=== PATIENT | female | born 1970 | race American Indian/Alaskan Native ===

== ENCOUNTER 2016-12-04 16:07 | Emergency (ER) | payer MEDICAID, OTHER ==
[2016-12-04 16:29] VITALS: BP 138/69
--- NOTE | 2016-12-04 16:30 | EDM.PDOC ---
ED HPI GENERAL MEDICAL PROBLEM - General Chief Complaint: Allergic Reaction Stated Complaint: MSG ALLERGY Time Seen by Provider: 12/04/16 16:30 Source of Information: Reports: Patient, RN, RN notes reviewed History Limitations: Reports: No limitations - History of Present Illness INITIAL COMMENTS - FREE TEXT/NARRATIVE: Ate a cheeseburger at the [employer] store and 20 minutes later developed itching and a "drunken" feeling which she immediately recognized as an MSG reaction. Denies cough, wheezing or rash. Onset: today Quality: Reports: Other (itching) Severity: moderate Improves with: Reports: None Worsens with: Reports: None Associated Symptoms: Reports: no other symptoms - Related Data Allergies Allergy/AdvReac Type Severity Reaction Status Date / Time No Known Allergies Allergy Verified 11/11/13 10:38 Home Meds: Home Meds Aspirin [Halfprin] 81 mg PO DAILY 11/11/13 [History] Ibuprofen [Motrin] 200 mg PO Q6H PRN 11/11/13 [History] Metoprolol Succinate 50 mg PO BID 11/11/13 [History] Sertraline [Zoloft] 100 mg PO DAILY 11/11/13 [History] clonazePAM [Klonopin] 0.5 mg PO TID 11/11/13 [History] Past Medical History Cardiovascular History: Reports: Hypertension Gastrointestinal History: Reports: Pancreatitis Musculoskeletal History: Reports: Arthritis Other Musculoskeletal History: recurrent right knee pain Neurological History: Reports: Concussion, Migraines Psychiatric History: Reports: Anxiety, PTSD Hematologic History: Reports: Anemia - Infectious Disease History Infectious Disease History: Reports: Chicken pox - Past Surgical History GI Surgical History: Reports: Cholecystectomy Social & Family History - Family History Family Medical History: Noncontributory - Tobacco Use Smoking Status *Q: Former Smoker Second Hand Smoke Exposure: No - Alcohol Use Days Per Week of Alcohol Use: 0 - Recreational Drug Use Recreational Drug Use: No - Living Situation & Occupation Living situation: Reports: with family ED ROS ALLERGIC REACTION - Review of Systems Review Of Systems: ROS reveals no pertinent complaints other than HPI. ED EXAM GENERAL NO PERIP PULSE - Physical Exam Exam: See Below Exam Limited By: No limitations General Appearance: obese Eye Exam: bilateral eye: normal inspection Ears: normal external exam, normal canal, hearing grossly normal, normal TMs Nose: normal inspection, normal mucosa, no blood Throat/Mouth: Normal inspection, Normal lips, Normal teeth, Normal gums, Normal oropharynx, Normal voice, No airway compromise Head: atraumatic, normocephalic Neck: normal inspection, supple, non-tender, full range of motion Respiratory/Chest: no respiratory distress, lungs clear, normal breath sounds, no accessory muscle use, chest non-tender Cardiovascular: normal peripheral pulses, regular rate, rhythm, no edema, no gallop, no JVD, no murmur, no rub GI/Abdominal: Other (obese benign abdomen) Back Exam: normal inspection, full range of motion, NT Extremities: normal inspection, normal range of motion, non-tender, normal capillary refill, no pedal edema Neurological: alert, oriented, CN II-XII intact, normal cognition, normal gait, normal reflexes, no motor/sensory deficits Psychiatric: anxious Skin Exam: Warm, Dry, Intact, Normal color, No rash Lymphatic: no adenopathy Course - Vital Signs Last Recorded V/S: Last Vital Signs Temp 36.4 C 12/04/16 16:27 Pulse 69 12/04/16 16:27 Resp 16 12/04/16 16:27 BP 138/69 12/04/16 16:27 Pulse Ox 98 12/04/16 16:27 - Orders/Labs/Meds Meds: Medications Discontinued Medications Generic Name Dose Route Start Last Admin Trade Name [place] PRN Reason Stop Dose Admin Diphenhydramine HCl 50 mg 12/04/16 16:33 12/04/16 16:39 Benadryl IM 12/04/16 16:34 50 mg ONETIME ONE Administration Departure - Departure Time of Disposition: 16:53 Disposition: Home, Self-Care 01 Condition: good Clinical Impression: MSG (monosodium glutamate) intolerance - Discharge Information Instructions: Food Allergy Forms: ED Department Discharge Additional Instructions: Avoid foods with MSG. Use [id number] Benadryl 25mg. one tablet every 6 hours until symptoms resolve. Do not drive while under the influence of this medication. Follow up in clinic tomorrow if not completely improved.
[2016-12-04] MEDS ORDERED: diphenhydrAMINE 50 MG/ML SDV IM ONE (16:33)
== END 2016-12-04 17:06 | disposition home or self-care (01) ==
LOC: DL.ED 16:07
DX: L29.9 Pruritus, unspecified (principal); T50.995A Adverse effect of other drugs, medicaments and biological substances, initial encounter; I10 Essential (primary) hypertension; G43.909 Migraine, unspecified, not intractable, without status migrainosus; Z90.49 Acquired absence of other specified parts of digestive tract; Z79.82 Long term (current) use of aspirin; Z79.899 Other long term (current) drug therapy; Z87.891 Personal history of nicotine dependence
CPT/HCPCS: 96372; 99282; J1200

== ENCOUNTER 2017-12-02 21:40 | Emergency (ER) | payer OTHER, MEDICAID ==
[2017-12-02 22:11] VITALS: BP 150/67
--- NOTE | 2017-12-03 00:20 | EDM.PDOC ---
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 Onset: Today Left Shoulder Pain Score (Numeric/FACES): 10 - Related Data Allergies Allergy/AdvReac Type Severity Reaction Status Date / Time No Known Allergies Allergy Verified 12/02/17 22:11 Home Meds: Home Meds Aspirin [Halfprin] 81 mg PO DAILY 11/11/13 [History] Ibuprofen [Motrin] 200 mg PO Q6H PRN 11/11/13 [History] Metoprolol Succinate 50 mg PO BID 11/11/13 [History] Sertraline [Zoloft] 100 mg PO DAILY 11/11/13 [History] clonazePAM [Klonopin] 0.5 mg PO TID 11/11/13 [History] Past Medical History HEENT History: Reports: Impaired Vision Cardiovascular History: Reports: Hypertension Gastrointestinal History: Reports: Pancreatitis Musculoskeletal History: Reports: Arthritis Other Musculoskeletal History: recurrent right knee pain Neurological History: Reports: Concussion, Migraines Psychiatric History: Reports: Anxiety, PTSD Hematologic History: Reports: Anemia - Infectious Disease History Infectious Disease History: Reports: Chicken Pox - Past Surgical History GI Surgical History: Reports: Cholecystectomy Female Surgical History: Reports: Section, Tubal Ligation Social & Family History - Family History Family Medical History: Noncontributory - Tobacco Use Smoking Status *Q: Never Smoker Second Hand Smoke Exposure: No - Caffeine Use Caffeine Use: Reports: Coffee, Soda, Tea - Recreational Drug Use Recreational Drug Use: No - Living Situation & Occupation Living situation: Reports: with Family Review of Systems - Review of Systems Review Of Systems: ROS reveals no pertinent complaints other than HPI. ED EXAM, GENERAL - Physical Exam Exam: See Below Exam Limited By: No Limitations General Appearance: Alert, Moderate Distress (with movement) Eye Exam: Bilateral Eye: PERRL Ears: Normal External Exam Nose: Normal Inspection Throat/Mouth: Normal Inspection Head: Atraumatic, Normocephalic Respiratory/Chest: No Respiratory Distress, Lungs Clear, Normal Breath Sounds Cardiovascular: Normal Peripheral Pulses, Regular Rate, Rhythm Back Exam: Normal Inspection Extremities: Arm Pain. No: Normal Range of Motion (limited ROM left shoulder. guarding, acive resitance to any movement.) Neurological: Alert, Oriented, Normal Cognition Psychiatric: Normal Affect Course - Vital Signs Last Recorded V/S: Last Vital Signs Temp 97.9 F 12/02/17 22:08 Pulse 70 12/02/17 22:08 Resp 18 12/02/17 22:08 BP 150/67 H 12/02/17 22:08 Pulse Ox 97 12/02/17 22:08 - Radiology Interpretation Free Text/Narrative:: left shoulder negative for fracture or dislocation Departure - Departure Time of Disposition: 00:13 Disposition: Home, Self-Care 01 Condition: Good Clinical Impression: Left shoulder pain Qualifiers: Chronicity: acute Qualified Code(s): M25.512 - Pain in left shoulder - Discharge Information Instructions: Shoulder Pain Referrals: Shantelle Brian PA-C [Primary Care Provider] - Forms: ED Department Discharge Additional Instructions: alternate tylenol and ibuprofen ice to shoulder follow up in clinic if continued pain greater than one week Shoulder immobilizer for comfort
== END 2017-12-03 00:32 | disposition home or self-care (01) ==
LOC: DL.ED 21:40
DX: M25.512 Pain in left shoulder (principal); I10 Essential (primary) hypertension; Z79.82 Long term (current) use of aspirin; Z79.899 Other long term (current) drug therapy
CPT/HCPCS: 73030-LT; 99283

== ENCOUNTER 2021-03-19 17:18 | Emergency (ER) | payer MEDICAID ==
--- NOTE | 2021-03-19 18:16 | EDM.PDOC ---
<JevonMelba Horacio - Last Filed: 03/19/21 20:41> ED HPI GENERAL MEDICAL PROBLEM - General Chief Complaint: Cardiovascular Problem Stated Complaint: BLOOD PRESSURE VERY HIGH Time Seen by Provider: 03/19/21 18:14 - Related Data Allergies Allergy/AdvReac Type Severity Reaction Status Date / Time acetaminophen [From Tylenol] Allergy Other Verified 03/19/21 17:38 monosodium glutamate Allergy Other Verified 03/19/21 17:38 Home Meds: Home Meds Aspirin [Halfprin] 81 mg PO DAILY 11/11/13 [History] Ibuprofen [Motrin] 200 mg PO Q6H PRN 11/11/13 [History] Metoprolol Succinate 50 mg PO BID 11/11/13 [History] Sertraline [Zoloft] 100 mg PO DAILY 11/11/13 [History] clonazePAM [Klonopin] 0.5 mg PO TID 11/11/13 [History] Departure - Departure Time of Disposition: 20:42 Disposition: Home, Self-Care 01 Condition: Good Clinical Impression: Nausea & vomiting Qualifiers: Vomiting type: bilious vomiting Qualified Code(s): R11.14 - Bilious vomiting Hypertension Qualifiers: Hypertension type: unspecified Qualified Code(s): I10 - Essential (primary) hypertension Instructions: Nausea, Adult, [id number] Forms: ED Department Discharge Additional Instructions: metoprolol 50mg twice daily clinic follow up this week clear liquid diet advance as tolerated zofran 4mg ODT one every 4 hours as needed for nausea vomiting urgent follow up if symptoms worsen <TeStacey Elida - Last Filed: 03/20/21 08:46> ED HPI GENERAL MEDICAL PROBLEM - General Source of Information: Reports: Patient, RN, RN Notes Reviewed History Limitations: Reports: No Limitations - History of Present Illness INITIAL COMMENTS - FREE TEXT/NARRATIVE: Rama is a 50 y/o female with history of hypertension who presents to the ED via personal vehicle with complaints of hypertension, headache, nausea, and vomiting. The patient reports she has been out of her medications for two days and is unable to establish care to have her medications refilled until the middle of March. Additionally, the patient reports nausea with several bouts of emesis starting this morning. She denies fever, shaking chills, chest pain, palpitations, shortness of breath, dyspepsia, abdominal pain, constipation, diarrhea, dysuria, or hematuria. She has taken no medications for he symptoms due to nausea. headache Pain Score (Numeric/FACES): 9 Past Medical History HEENT History: Reports: Impaired Vision Cardiovascular History: Reports: Hypertension Gastrointestinal History: Reports: Pancreatitis Musculoskeletal History: Reports: Arthritis Other Musculoskeletal History: recurrent right knee pain Neurological History: Reports: Concussion, Migraines Psychiatric History: Reports: Anxiety, PTSD Hematologic History: Reports: Anemia - Infectious Disease History Infectious Disease History: Reports: Chicken Pox - Past Surgical History GI Surgical History: Reports: Cholecystectomy Female Surgical History: Reports: Section, Tubal Ligation Social & Family History - Family History Family Medical History: No Pertinent Family History - Tobacco Use Tobacco Use Status *Q: Current Every Day Tobacco User Years of Tobacco use: 10 Packs/Tins Daily: 1 - Caffeine Use Caffeine Use: Reports: None - Recreational Drug Use Recreational Drug Use: No - Living Situation & Occupation Living situation: Reports: with Family ED ROS GENERAL - Review of Systems Review Of Systems: Comprehensive ROS is negative, except as noted in HPI. ED EXAM, GENERAL - Physical Exam Exam: See Below Exam Limited By: No Limitations General Appearance: Alert, No Apparent Distress Eye Exam: Bilateral Eye: EOMI, Normal Inspection, PERRL (3mm) Ears: Normal External Exam, Normal Canal, Hearing Grossly Normal, Normal TMs Nose: Normal Inspection, Normal Mucosa, No Blood Throat/Mouth: Normal Inspection, Normal Voice, No Airway Compromise. No: Normal Oropharynx (Dry mucous membranes) Head: Atraumatic, Normocephalic Neck: Normal Inspection, Supple, Non-Tender, Full Range of Motion. No: Lymphadenopathy (L), Lymphadenopathy (R) Respiratory/Chest: No Respiratory Distress, Lungs Clear, Normal Breath Sounds, No Accessory Muscle Use, Chest Non-Tender Cardiovascular: Normal Peripheral Pulses, Regular Rate, Rhythm, No Edema, No Gallop, No JVD, No Murmur, No Rub Peripheral Pulses: 2+: Radial (L), Radial (R) GI/Abdominal: Normal Bowel Sounds, Soft, Non-Tender, No Distention, No Abnormal Bruit, No Mass, Pelvis Stable (Female) Exam: Deferred Rectal (Female) Exam: Deferred Back Exam: Normal Inspection, Full Range of Motion. No: CVA Tenderness (L), CVA Tenderness (R) Extremities: Normal Inspection, Normal Range of Motion, Non-Tender, No Pedal Edema, Normal Capillary Refill Neurological: Alert, Oriented, CN II-XII Intact, Normal Cognition, Normal Gait, No Motor/Sensory Deficits Psychiatric: Normal Affect, Normal Mood Skin Exam: Warm, Dry, Intact, Normal Color, No Rash. No: Cyanosis, Jaundice, Mottled, Pallor Lymphatic: No Adenopathy #1 Interpretation EKG Date: 03/19/21 Time: 18:19 Rhythm: NSR Rate (Beats/Min): 80 [place]: Normal P-Wave: Present QRS: Normal ST-T: Normal QT: Normal MS/PQ Interval: 0.185 Comparison: No Change EKG Interpretation Comments: NSR; No evidence of acute myocardial ischemia Course - Vital Signs Last Recorded V/S: Last Vital Signs Temp 96.8 F L 03/19/21 17:32 Pulse 80 03/19/21 20:39 Resp 20 03/19/21 17:32 BP 158/84 H 03/19/21 20:39 Pulse Ox 95 03/19/21 17:32 - Orders/Labs/Meds Labs: Laboratory Tests 03/19/21 03/19/21 03/19/21 Range/Units 18:26 18:26 18:26 WBC 8.1 (5.0-10.0) 10^3/uL RBC 4.53 (4.2-5.4) 10^6/uL Hgb 12.0 (12.0-16.0) g/dL Hct 36.5 L (37.0-47.0) % MCV 80.6 (80-100) fL MCH 26.5 L (27.0-34.0) pg MCHC 32.9 L (33.0-35.0) g/dL Plt Count 204 (150-450) 10^3/uL Neut % (Auto) 87.2 H (42.2-75.2) % Lymph % (Auto) 10.8 L (20.5-50.1) % [place] % (Auto) 1.9 L (2-8) % Eos % (Auto) 0.0 L (1.0-3.0) % Baso % (Auto) 0.1 (0.0-1.0) % Sodium 143 (136-145) mmol/L Potassium 3.4 L (3.5-5.1) mmol/L Chloride 103 (98-107) mmol/L Carbon Dioxide 27 (21-32) mmol/L Anion Gap 16.4 H (7-13) mEq/L BUN 9 (7-18) mg/dL Creatinine 0.74 (0.55-1.02) mg/dL Est Cr Clr Drug Dosing 65.33 mL/min Estimated GFR (MDRD) > 60 BUN/Creatinine Ratio 12.2 (No establ ref range) Glucose 142 H (70-99) mg/dL Lactic Acid 3.1 H* (0.4-2.0) mmol/L Calcium 9.0 (8.5-10.1) mg/dL Magnesium 1.9 (1.8-2.4) mg/dL Total Bilirubin 0.4 (0.2-1.0) mg/dL AST 29 (15-37) U/L ALT 49 (14-59) U/L Alkaline Phosphatase 124 H (46-116) U/L Troponin I High Sens 5 (<=51) pg/mL C-Reactive Protein 0.6 (0.0-0.9) mg/dL Total Protein 7.9 (6.4-8.2) g/dL Albumin 3.5 (3.4-5.0) g/dL Globulin 4.4 Albumin/Globulin Ratio 0.8 Meds: Medications Discontinued Medications Generic Name Dose Route Start Last Admin Trade Name Freq PRN Reason Stop Dose Admin Metoprolol Tartrate 50 mg 03/19/21 19:52 03/19/21 20:39 Metoprolol Tartrate 50 Mg Tab PO 03/19/21 19:53 50 mg ONETIME ONE Administration - Re-Assessments/Exams Free Text/Narrative Re-Assessment/Exam: 03/19/21 Care of patient transferred to Melissa Escoto PA-C at 1900. Sepsis Event Note (ED) - Evaluation Sepsis Screening Result: No Definite Risk
[2021-03-19 18:54] LABS: ANION GAP 16.4 mEq/L (7-13); CHLORIDE,CL 103 mmol/L (98-107); SODIUM,NA 143 mmol/L (136-145)
[2021-03-19] MEDS ORDERED: Metoprolol Tartrate 50 MG Tab PO ONE (19:52)
[2021-03-19 20:41] VITALS: BP 158/84; PULSE 80
== END 2021-03-19 20:53 | disposition home or self-care (01) ==
LOC: DL.ED 17:18
DX: R11.2 Nausea with vomiting, unspecified (principal); I10 Essential (primary) hypertension; Z88.8 Allergy status to other drugs, medicaments and biological substances; Z79.82 Long term (current) use of aspirin; Z72.0 Tobacco use
CPT/HCPCS: 36415; 80053; 83605; 83735; 84484; 85025; 86140; 93005; 99284; A9270

== ENCOUNTER 2021-06-17 13:05 | Emergency (ER) | payer MEDICAID ==
--- NOTE | 2021-06-17 17:30 | EDM.PDOC ---
ED HPI GENERAL MEDICAL PROBLEM - General Chief Complaint: General Stated Complaint: [id number] DEHYDRATION HEADACHE X5 DAYS Time Seen by Provider: 06/17/21 15:30 Source of Information: Reports: Patient History Limitations: Reports: No Limitations - History of Present Illness INITIAL COMMENTS - FREE TEXT/NARRATIVE: ED with c/o headache x 5 days, no cough or congestion, No sinus pressure, chills body aches No nausea or vomiting. Appetite poor, not eating or drinking much. No lost of taste or smell Right Flank Pain Score (Numeric/FACES): 5 - Related Data Allergies Allergy/AdvReac Type Severity Reaction Status Date / Time acetaminophen [From Tylenol] Allergy Other Verified 06/17/21 15:27 monosodium glutamate Allergy Other Verified 06/17/21 15:27 Home Meds: Home Meds Metoprolol Succinate 50 mg PO BID 11/11/13 [History] Sertraline [Zoloft] 100 mg PO DAILY 11/11/13 [History] clonazePAM [Klonopin] 0.5 mg PO TID 11/11/13 [History] Ashwagandha Root Extract 300 mg PO ASDIRECTED 05/22/21 [History] Aspirin [Halfprin] 81 mg PO DAILY 05/22/21 [History] Black Cohosh Root [Menopause Support] 1 tab PO ASDIRECTED 05/22/21 [History] Chrm/Vineg/Bit-Orang Peel/Gr T [Apple Cider Vinegar Plus TB] 1 tab PO ASDIRECTED 05/22/21 [History] Cyclobenzaprine [Flexeril] 5 mg PO ASDIRECTED PRN 05/22/21 [History] [place]/Linoleic/Gamoleni [[place] 1,000 mg Sftg] 1,000 mg PO DAILY 05/22/21 [History] Gabapentin [Neurontin] 100 mg PO DAILY 05/22/21 [History] Ibuprofen 600 mg PO DAILY 05/22/21 [History] Mv,Calcium,Min/Iron/Folic/Vitk [Multi For Her Tablet] 1 tab PO DAILY 05/22/21 [History] Potassium Chloride [Klor-Con 10] 10 meq PO DAILY 05/22/21 [History] Pumpkin Seed Extract/Soy Germ [Azo Bladder Control Capsule] 300 mg PO DAILY 05/22/21 [History] Qc Tumeric 500 mg PO DAILY 05/22/21 [History] Vitamin B Complex [B Complex] 1 tab PO DAILY 05/22/21 [History] Past Medical History HEENT History: Reports: Impaired Vision Cardiovascular History: Reports: Hypertension Respiratory History: Reports: Sleep Apnea Gastrointestinal History: Reports: Pancreatitis Genitourinary History: Reports: None [employer] History: Reports: Musculoskeletal History: Reports: Arthritis, Neck Pain, Chronic Other Musculoskeletal History: recurrent right knee pain Neurological History: Reports: Migraines Psychiatric History: Reports: Anxiety, Bipolar, Depression, PTSD Endocrine/Metabolic History: Reports: Obesity/BMI 30+ Hematologic History: Reports: Anemia Immunologic History: Reports: None Oncologic (Cancer) History: Reports: None Dermatologic History: Reports: None - Infectious Disease History Infectious Disease History: Reports: Chicken Pox - Past Surgical History Head Surgeries/Procedures: Reports: None HEENT Surgical History: Reports: Oral Surgery Cardiovascular Surgical History: Reports: None Respiratory Surgical History: Reports: None GI Surgical History: Reports: Cholecystectomy, Colonoscopy, EGD Female Surgical History: Reports: Section, Endometrial Ablation, Tubal Ligation Endocrine Surgical History: Reports: None Neurological Surgical History: Reports: None Musculoskeletal Surgical History: Reports: None Social & Family History - Family History Family Medical History: No Pertinent Family History - Tobacco Use Tobacco Use Status *Q: Never Tobacco User Second Hand Smoke Exposure: No - Caffeine Use Caffeine Use: Reports: Coffee Caffeine Use Comment: 1-2 cups daily - Living Situation & Occupation Living situation: Reports: with Family ED ROS GENERAL - Review of Systems Review Of Systems: Comprehensive ROS is negative, except as noted in HPI. ED EXAM, GENERAL - Physical Exam Exam: See Below Exam Limited By: No Limitations General Appearance: Alert, Mild Distress Eye Exam: Bilateral Eye: EOMI, PERRL Ears: Normal External Exam, Hearing Grossly Normal Ear Exam: Bilateral Ear: TM normal Nose: Normal Inspection, Normal Mucosa Throat/Mouth: Normal Inspection, Normal Oropharynx Head: Atraumatic, Normocephalic. No: Sinus Tenderness Neck: Normal Inspection, Full Range of Motion Respiratory/Chest: No Respiratory Distress, Lungs Clear, Normal Breath Sounds Cardiovascular: Normal Peripheral Pulses, Regular Rate, Rhythm GI/Abdominal: Normal Bowel Sounds Back Exam: Normal Inspection, Full Range of Motion Neurological: Alert, Oriented, CN II-XII Intact, Normal Cognition, Normal Gait Psychiatric: Flat Affect Skin Exam: Warm, Dry, Intact, Normal Color Course - Vital Signs Last Recorded V/S: Last Vital Signs Temp 98.2 F 06/17/21 16:00 Pulse 102 H 06/17/21 16:00 Resp 20 06/17/21 16:00 BP 128/79 06/17/21 16:00 Pulse Ox 95 06/17/21 16:00 - Orders/Labs/Meds Labs: Laboratory Tests 06/17/21 Range/Units 14:57 SARS-CoV-2 RNA (ZAHIDA) Positive H (NEGATIVE) Departure - Departure Time of Disposition: 17:28 Disposition: Home, Self-Care 01 Condition: Good Clinical Impression: COVID Migraine Qualifiers: Migraine type: unspecified Status migrainosus presence: without status migrainosus Intractability: not intractable Qualified Code(s): G43.909 - Migraine, unspecified, not intractable, without status migrainosus - Discharge Information *PRESCRIPTION DRUG MONITORING PROGRAM REVIEWED*: No *COPY OF PRESCRIPTION DRUG MONITORING REPORT IN PATIENT MIRIAM: No Instructions: 10 Things You Can Do to Manage Your COVID-19 Symptoms at Home - [facility] (02/09/2021), Chronic Migraine Headache, [id number] Forms: ED Department Discharge Additional Instructions: rest quarantine 14 day increase fluids good hand washing, wear mask notify contacts Sepsis Event Note (ED) - Evaluation Sepsis Screening Result: No Definite Risk
[2021-06-17 18:01] VITALS: BP 128/79; PULSE 102
== END 2021-06-17 18:00 | disposition home or self-care (01) ==
LOC: DL.ED 13:05
DX: U07.1 COVID-19 (principal); G43.909 Migraine, unspecified, not intractable, without status migrainosus; I10 Essential (primary) hypertension; E66.9 Obesity, unspecified; Z68.37 Body mass index [BMI] 37.0-37.9, adult; Z88.8 Allergy status to other drugs, medicaments and biological substances; Z79.82 Long term (current) use of aspirin; Z79.899 Other long term (current) drug therapy
CPT/HCPCS: 99283; U0002

== ENCOUNTER 2021-08-28 08:42 | Emergency (ER) | payer MEDICAID ==
[2021-08-28 08:55] VITALS: BP 156/79; PULSE 68
[2021-08-28] MEDS ORDERED: Dexamethasone 4 MG/ML SDV IM ONE (09:55)
[2021-08-28] MEDS ORDERED: oxyCODONE 5 MG Tab PO ONE (09:56)
== END 2021-08-28 11:38 | disposition home or self-care (01) ==
LOC: DL.ED 08:42
DX: M54.42 Lumbago with sciatica, left side (principal); I10 Essential (primary) hypertension; M19.90 Unspecified osteoarthritis, unspecified site; E66.9 Obesity, unspecified; Z68.30 Body mass index [BMI] 30.0-30.9, adult; Z88.8 Allergy status to other drugs, medicaments and biological substances; Z88.6 Allergy status to analgesic agent; Z79.82 Long term (current) use of aspirin; Z79.899 Other long term (current) drug therapy
CPT/HCPCS: 72131; 73700; 96372; 99284; A9270; J1100

== ENCOUNTER 2022-07-03 22:24 | Emergency (ER) | payer MEDICAID ==
[2022-07-03 22:57] VITALS: BP 137/88; PULSE 81
[2022-07-04] MEDS ORDERED: Gabapentin 100 MG Cap PO ONE (00:33)
== END 2022-07-04 00:52 | disposition home or self-care (01) ==
LOC: DL.ED 22:24
DX: G62.9 Polyneuropathy, unspecified (principal); I10 Essential (primary) hypertension; E66.9 Obesity, unspecified; Z88.8 Allergy status to other drugs, medicaments and biological substances; Z79.82 Long term (current) use of aspirin; Z68.37 Body mass index [BMI] 37.0-37.9, adult
CPT/HCPCS: 73630-RT; 99283; A9270-GY

== ENCOUNTER 2022-08-31 21:39 | Emergency (ER) | payer MEDICAID ==
[2022-08-31] MEDS ORDERED: diphenhydrAMINE 50 MG/ML SDV IVPUSH ONE (21:56)
[2022-08-31] MEDS ORDERED: Sodium Chloride 0.9% 10 ML Syringe FLUSH PRN (21:56)
[2022-08-31 22:01] VITALS: BP 158/86; PULSE 97
== END 2022-08-31 22:58 | disposition home or self-care (01) ==
LOC: DL.ED 21:39
DX: R53.83 Other fatigue (principal); T47.5X5A Adverse effect of digestants, initial encounter; I10 Essential (primary) hypertension; M19.90 Unspecified osteoarthritis, unspecified site; E66.9 Obesity, unspecified; Z68.35 Body mass index [BMI] 35.0-35.9, adult; Z88.6 Allergy status to analgesic agent; Z88.8 Allergy status to other drugs, medicaments and biological substances; Z79.82 Long term (current) use of aspirin; Z79.899 Other long term (current) drug therapy
CPT/HCPCS: 96374; 99283-25; J1200; J3490

== ENCOUNTER 2022-09-02 17:41 | Emergency (ER) | payer MEDICAID ==
[2022-09-02 18:25] VITALS: BP 139/82; PULSE 69
== END 2022-09-02 20:20 | disposition left against medical advice (07) ==
LOC: DL.ED 17:41
DX: Z53.21 Procedure and treatment not carried out due to patient leaving prior to being seen by health care provider (principal)

== ENCOUNTER 2023-01-13 16:19 | Emergency (ER) | payer OTHER, MEDICAID ==
[~2023-01-13 16:19] MED LIST: Iopamidol 612 MG/ML 100 ML Bottle IVPUSH ONE; Sodium Chloride 0.9% 10 ML Syringe FLUSH PRN
[2023-01-13 16:45] LABS: BASOPHILS PERCENT AUTO 0.3 % (0.0-1.0); EOSINOPHILS PERCENT AUTO 1.5 % (1.0-3.0); HEMATOCRIT 35.1 % (37.0-47.0); HEMOGLOBIN 11.5 g/dL (12.0-16.0); LYMPHOCYTES PERCENT AUTO 22.8 % (20.5-50.1); MEAN CORPUSCULAR HEMOGLOBIN 28.8 pg (27.0-34.0); MEAN CORPUSCULAR HGB CONC 32.8 g/dL (33.0-35.0); MONOCYTES PERCENT AUTO 5.7 % (2-8); NEUTROPHILS PERCENT AUTO 69.7 % (42.2-75.2); PLATELET COUNT,PLT 213 10^3/uL (150-450); RED BLOOD CELL COUNT 3.99 10^6/uL (4.2-5.4); WHITE BLOOD CELL COUNT,WBC 7.9 10^3/uL (5.0-10.0)
[2023-01-13 17:03] LABS: PROTHROMBIN TIME 9.9 SEC (9.0-12.0); PTT,PARTIAL THROMBOPLSTIN TIME 25.9 SEC (22.0-34.0)
[2023-01-13 17:08] LABS: LACTIC ACID 1.1 mmol/L (0.4-2.0)
[2023-01-13 17:15] LABS: A/G RATIO 0.89; ALANINE AMINOTRANSFERASE,ALT 35 U/L (14-59); ALBUMIN 3.1 g/dL (3.4-5.0); ALKALINE PHOSPHATASE 95 U/L (46-116); AMYLASE 43 U/L (25-115); ASPARTATE AMNIOTRANSFERASE,AST 24 U/L (15-37); BILIRUBIN TOTAL 0.2 mg/dL (0.2-1.0); BLOOD UREA NITROGEN,BUN 23 mg/dL (7-18); C-REACTIVE PROTEIN < 0.2 mg/dL (0.0-0.9); CALCIUM 8.1 mg/dL (8.5-10.1); CARBON DIOXIDE,CO2 26 mmol/L (21-32); CHLORIDE,CL 102 mmol/L (98-107); CREATININE 0.82 mg/dL (0.55-1.02); ESTIMATED GFR 86 mL/min (>=60); ETHANOL BLOOD MEDICAL < 3 mg/dL (0); GLUCOSE RANDOM 145 mg/dL (70-99); LIPASE 157 U/L (73-393); MAGNESIUM 1.8 mg/dL (1.8-2.4); PROTEIN TOTAL,TP 6.6 g/dL (6.4-8.2); SODIUM,NA 135 mmol/L (136-145)
[2023-01-13] MEDS ORDERED: Ketorolac 30 MG/ML SDV IVPUSH ONE (17:55)
[2023-01-13 18:37] LABS: APPEARANCE,URINE CLEAR (CLEAR); BILIRUBIN,URINE NEGATIVE (NEGATIVE); COLOR,URINE YELLOW (YELLOW); GLUCOSE,URINE NEGATIVE (NEGATIVE); KETONES,URINE NEGATIVE (NEGATIVE); LEUKOCYTE ESTERASE,URINE NEGATIVE (NEGATIVE); NITRITE,URINE NEGATIVE (NEGATIVE); OCCULT BLOOD,URINE NEGATIVE (NEGATIVE); PROTEIN,URINE NEGATIVE (NEGATIVE); UROBILINOGEN,URINE 0.2 mg/dL (0.2-1.0)
[2023-01-13 18:46] VITALS: BP 145/81; PULSE 77
[2023-01-13 18:48] LABS: AMPHETAMINES,URINE NEGATIVE (NEGATIVE); BARBITURATES,URINE NEGATIVE (NEGATIVE); BENZODIAZEPINE,URINE NEGATIVE (NEGATIVE); MDMA (ECSTASY), URINE NEGATIVE (NEGATIVE); METHADONE,URINE NEGATIVE (NEGATIVE); METHAMPHETAMINES,URINE NEGATIVE (NEGATIVE); OPIATES,URINE NEGATIVE (NEGATIVE); OXYCODONE,URINE NEGATIVE (NEGATIVE); PHENCYCLIDINE,URINE NEGATIVE (NEGATIVE); TCA,URINE POSITIVE (NEGATIVE)
== END 2023-01-13 18:53 | disposition home or self-care (01) ==
LOC: DL.ED 16:19
DX: S30.1XXA Contusion of abdominal wall, initial encounter (principal); I10 Essential (primary) hypertension; E66.9 Obesity, unspecified; Z68.30 Body mass index [BMI] 30.0-30.9, adult; Z88.8 Allergy status to other drugs, medicaments and biological substances; Z79.82 Long term (current) use of aspirin; V89.2XXA Person injured in unspecified motor-vehicle accident, traffic, initial encounter; Y92.410 Unspecified street and highway as the place of occurrence of the external cause
CPT/HCPCS: 36415; 70450; 71260; 72125; 74177; 80053; 80305; 80307; 81003; 82150; 83605; 83690; 83735; 84484; 85025; 85610; 85730; 86140; 96374; 99283; 99284; Q9967

== ENCOUNTER 2023-03-02 12:09 | Emergency (ER) | payer MEDICAID ==
[2023-03-02] MEDS ORDERED: Sodium Chloride 0.9% 10 ML Syringe FLUSH PRN (12:20)
[2023-03-02] MEDS ORDERED: methylPREDNISolone Sodium Succinate 125 MG/2 ML SDV IVPUSH ONE (12:21)
[2023-03-02] MEDS ORDERED: Famotidine 20 MG/2 ML SDV IVPUSH ONE (12:21)
[2023-03-02] MEDS ORDERED: diphenhydrAMINE 50 MG/ML SDV IVPUSH ONE (12:21)
[2023-03-02] MEDS ORDERED: Sodium Chloride 0.9% 1,000 ML IV ONE (12:21)
[2023-03-02 12:28] VITALS: BP 136/64; PULSE 62
[2023-03-02 12:48] LABS: BASOPHILS PERCENT AUTO 0.4 % (0.0-1.0); EOSINOPHILS PERCENT AUTO 2.6 % (1.0-3.0); HEMATOCRIT 40.7 % (37.0-47.0); HEMOGLOBIN 13.1 g/dL (12.0-16.0); LYMPHOCYTES PERCENT AUTO 23.6 % (20.5-50.1); MEAN CORPUSCULAR HGB CONC 32.2 g/dL (33.0-35.0); MONOCYTES PERCENT AUTO 6.9 % (2-8); NEUTROPHILS PERCENT AUTO 66.5 % (42.2-75.2); PLATELET COUNT,PLT 241 10^3/uL (150-450); RED BLOOD CELL COUNT 4.68 10^6/uL (4.2-5.4); WHITE BLOOD CELL COUNT,WBC 8.2 10^3/uL (5.0-10.0)
[2023-03-02 13:15] LABS: A/G RATIO 0.8; ALBUMIN 3.8 g/dL (3.4-5.0); ANION GAP 15.2 mEq/L (7-13); BILIRUBIN TOTAL 0.3 mg/dL (0.2-1.0); BUN/CREATININE RATIO 28.9 (No establ ref range); CALCIUM 9.3 mg/dL (8.5-10.1); CREATININE 0.9 mg/dL (0.55-1.02); EST CRCL DRUG DOSING (CG) 57.83 mL/min; POTASSIUM,K 4.2 mmol/L (3.5-5.1); PROTEIN TOTAL,TP 8.6 g/dL (6.4-8.2)
[2023-03-02] MEDS ORDERED: Take Home: predniSONE 20 MG, 4 Tab Pack PO ONE (13:42)
[2023-03-02 13:53] LABS: APPEARANCE,URINE CLEAR (CLEAR); BILIRUBIN,URINE NEGATIVE (NEGATIVE); COLOR,URINE YELLOW (YELLOW); GLUCOSE,URINE NEGATIVE (NEGATIVE); KETONES,URINE NEGATIVE (NEGATIVE); LEUKOCYTE ESTERASE,URINE NEGATIVE (NEGATIVE); NITRITE,URINE NEGATIVE (NEGATIVE); OCCULT BLOOD,URINE NEGATIVE (NEGATIVE); PROTEIN,URINE NEGATIVE (NEGATIVE); UROBILINOGEN,URINE 0.2 mg/dL (0.2-1.0)
== END 2023-03-02 13:56 | disposition home or self-care (01) ==
LOC: DL.ED 12:09
DX: T78.40XA Allergy, unspecified, initial encounter (principal); I10 Essential (primary) hypertension; E66.9 Obesity, unspecified; Z68.36 Body mass index [BMI] 36.0-36.9, adult; Z88.6 Allergy status to analgesic agent; Z88.8 Allergy status to other drugs, medicaments and biological substances; Z79.899 Other long term (current) drug therapy
CPT/HCPCS: 36415; 71045; 80053; 81003; 82947; 83735; 84484; 85025; 93005; 93010; 96361; 96374; 96375; 99284; A9270; J1200; J2930; J3490; J7030

== ENCOUNTER 2023-03-03 11:45 | Emergency (ER) | payer MEDICAID ==
[2023-03-03 12:59] VITALS: BP 150/118; PULSE 75
[2023-03-03] MEDS ORDERED: Ketorolac 30 MG/ML SDV IVPUSH ONE (14:56)
[2023-03-03] MEDS ORDERED: Metoclopramide 10 MG/2 ML SDV IVPUSH ONE (14:56)
[2023-03-03] MEDS ORDERED: Sodium Chloride 0.9% 10 ML Syringe FLUSH PRN (14:56)
[2023-03-03] MEDS ORDERED: diphenhydrAMINE 50 MG/ML SDV IVPUSH ONE (14:56)
[2023-03-03] MEDS ORDERED: Sodium Chloride 0.9% 1,000 ML IV ONE (14:56)
[2023-03-03] MEDS ORDERED: Promethazine 25 MG/ML SDV IM ONE (15:59)
[2023-03-03] MEDS ORDERED: Butorphanol 2 MG/ML SDV IVPUSH ONE (16:00)
== END 2023-03-03 17:30 | disposition home or self-care (01) ==
LOC: DL.ED 11:45
DX: G43.909 Migraine, unspecified, not intractable, without status migrainosus (principal); I10 Essential (primary) hypertension; E66.9 Obesity, unspecified; Z88.8 Allergy status to other drugs, medicaments and biological substances; Z79.82 Long term (current) use of aspirin; Z68.39 Body mass index [BMI] 39.0-39.9, adult
CPT/HCPCS: 96361; 96372; 96374; 96375; 99283; J0595; J1200; J1885; J2550; J2765; J7030; J3490

== ENCOUNTER 2024-05-15 02:06 | Emergency (ER) | payer MEDICAID ==
[2024-05-15 03:23] VITALS: BP 126/71; PULSE 93
== END 2024-05-15 06:24 | disposition home or self-care (01) ==
LOC: DL.ED 02:06
DX: T58.91XA Toxic effect of carbon monoxide from unspecified source, accidental (unintentional), initial encounter (principal); R51.9 Headache, unspecified; E66.9 Obesity, unspecified; Z68.38 Body mass index [BMI] 38.0-38.9, adult; F17.290 Nicotine dependence, other tobacco product, uncomplicated; Z90.49 Acquired absence of other specified parts of digestive tract; Z79.82 Long term (current) use of aspirin; Z79.899 Other long term (current) drug therapy; Z88.6 Allergy status to analgesic agent; Z91.048 Other nonmedicinal substance allergy status
CPT/HCPCS: 82947; 99283

== ENCOUNTER 2025-01-30 19:31 | Emergency (ER) | payer MEDICAID ==
[2025-01-30] MEDS ORDERED: Sodium Chloride 0.9% 10 ML Syringe FLUSH PRN (19:37)
[2025-01-30 20:22] LABS: PLATELET COUNT,PLT 190 10^3/uL (150-450); RED BLOOD CELL COUNT 4.77 10^6/uL (4.2-5.4); WHITE BLOOD CELL COUNT,WBC 6.6 10^3/uL (5.0-10.0)
[2025-01-30 20:47] LABS: BASOPHILS PERCENT AUTO 0.3 % (0.0-1.0); EOSINOPHILS PERCENT AUTO 1.8 % (1.0-3.0); LYMPHOCYTES PERCENT AUTO 23.5 % (20.5-50.1); MONOCYTES PERCENT AUTO 5.9 % (2-8); NEUTROPHILS PERCENT AUTO 68.5 % (42.2-75.2)
[2025-01-30 20:56] LABS: BLOOD UREA NITROGEN,BUN 16.0 mg/dL (7-18); CARBON DIOXIDE,CO2 26.0 mmol/L (21-32); CHLORIDE,CL 109.0 mmol/L (98-107); CREATININE 1.06 mg/dL (0.55-1.02); EST CRCL DRUG DOSING (CG) 43.58 mL/min; GLUCOSE RANDOM 110.0 mg/dL (70-99); POTASSIUM,K 4.0 mmol/L (3.5-5.1); SODIUM,NA 143.0 mmol/L (136-145)
[2025-01-30 20:57] LABS: ESTIMATED GFR 62.0 mL/min (>=60)
[2025-01-30 21:33] VITALS: BP 119/67; PULSE 74
[2025-01-30 21:36] LABS: EOSINOPHILS PERCENT MAN 1 % (1-3); LYMPHOCYTES PERCENT MAN 30 % (20-50); MONOCYTES PERCENT MAN 6 % (2-8); SEG NEUTROPHILS PERCENT MAN 63 % (42-75)
== END 2025-01-30 21:20 | disposition home or self-care (01) ==
LOC: DL.ED 19:31
DX: R55 Syncope and collapse (principal); E66.9 Obesity, unspecified; Z79.899 Other long term (current) drug therapy; Z79.82 Long term (current) use of aspirin
CPT/HCPCS: 36415; 70450; 72125; 80048; 84484; 85025; 93005; 99285; A9270

== ENCOUNTER 2025-03-21 23:45 | Emergency (ER) | payer MEDICAID ==
[2025-03-21] MEDS: fentaNYL 100 MCG/2 ML SDV ONE (23:52)
[2025-03-22] MEDS: Propofol 200 MG/20 ML SDV IVPUSH ONE (00:26)
[2025-03-22] MEDS: Iopamidol 755 Mg/ML 100 ML Bottle IVPUSH ONE (01:00)
[2025-03-22 01:05] LABS: BASOPHILS PERCENT AUTO 0.1 % (0.0-1.0); EOSINOPHILS PERCENT AUTO 1.4 % (1.0-3.0); LYMPHOCYTES PERCENT AUTO 27.2 % (20.5-50.1); MONOCYTES PERCENT AUTO 5.6 % (2-8); NEUTROPHILS PERCENT AUTO 65.7 % (42.2-75.2); PLATELET COUNT,PLT 209 10^3/uL (150-450); RED BLOOD CELL COUNT 4.58 10^6/uL (4.2-5.4); WHITE BLOOD CELL COUNT,WBC 9.1 10^3/uL (5.0-10.0)
[2025-03-22 01:20] LABS: A/G RATIO 0.9; ALANINE AMINOTRANSFERASE,ALT 43 U/L (14-59); ASPARTATE AMNIOTRANSFERASE,AST 21 U/L (15-37); BILIRUBIN TOTAL 0.1 mg/dL (0.2-1.0); BLOOD UREA NITROGEN,BUN 18 mg/dL (7-18); CARBON DIOXIDE,CO2 22 mmol/L (21-32); CHLORIDE,CL 108 mmol/L (98-107); CREATININE 0.73 mg/dL (0.55-1.02); ESTIMATED GFR 98 mL/min (>=60); GLUCOSE RANDOM 161 mg/dL (70-99); POTASSIUM,K 3.0 mmol/L (3.5-5.1); PROTEIN TOTAL,TP 7.5 g/dL (6.4-8.2); SODIUM,NA 144 mmol/L (136-145)
[2025-03-22 01:23] LABS: LACTIC ACID 1.9 mmol/L (0.4-2.0)
[2025-03-22 01:30] VITALS: BP 185/94; PULSE 81
[2025-03-22] MEDS: fentaNYL 100 MCG/2 ML SDV IVPUSH ONE (03:37)
[2025-03-22] MEDS: Take Home: Acetaminophen/HYDROcodone 325-5 MG, 5 Tab Pack PO ONE (04:28)
== END 2025-03-22 04:40 | disposition home or self-care (01) ==
LOC: DL.ED 23:45
DX: S42.461A Displaced fracture of medial condyle of right humerus, initial encounter for closed fracture (principal); S42.451A Displaced fracture of lateral condyle of right humerus, initial encounter for closed fracture; S53.104A Unspecified dislocation of right ulnohumeral joint, initial encounter; E66.9 Obesity, unspecified; Z79.899 Other long term (current) drug therapy; Z90.49 Acquired absence of other specified parts of digestive tract; W01.0XXA Fall on same level from slipping, tripping and stumbling without subsequent striking against object, initial encounter; Z68.32 Body mass index [BMI] 32.0-32.9, adult
CPT/HCPCS: 24600; 36415; 71045; 73020; 73070; 73090; 73206; 80053; 83605; 85025; 96374; 99284; A9270; J2270; J2704; J3010; Q9967